=== PATIENT | male | born 1995 | race African-American/Black ===

== ENCOUNTER 2019-12-31 03:51 | Emergency (ER) | payer SELFPAY ==
[2019-12-31 04:17] VITALS: BP 133/70; PULSE 82; RESP 20; TEMP 36.4; O2SAT 95
[2019-12-31] MEDS: cefTRIAXone 250 MG VIAL IM (04:42)
[2019-12-31] MEDS: AZITHROMYCIN 250 MG TABLET 1000 MG PO (04:42)
[2019-12-31 04:53] LABS: Add Urine Microscopic? YES; Appearance Urine Cloudy (Clear); Bacteria Urine Trace /hpf; Bilirubin Urine Negative (Negative); Blood Urine Negative (Negative); Color Urine Yellow (Yellow); Glucose Urine UA Negative (Negative); Ketones Urine Negative (Negative); Leukocyte Esterase Ur 3+ LEU/UL (Negative); Mucus Urine Rare /lpf; Nitrate Urine Negative (Negative); Protein Urine 1+ mg/dL (Negative); Specific Grav Ur 1.024 (1.001-1.035); Urobilinogen Urine Negative mg/dL (<2.0); WBC Urine >75 /hpf
--- NOTE | 2019-12-31 05:01 | ED.MALEGU ---
HPI - Male Genitourinary General Chief complaint: Unspecified Stated complaint: std screening Time Seen by Provider: 12/31/19 04:19 Source: patient Mode of arrival: ambulatory Limitations: no limitations History of Present Illness HPI Narrative: Patient is a 24-year-old male who presents to the emergency department with complaint of STD exposure. Patient states he had unprotected sex with his girlfriend 2 days ago. He states she just informed him that she was diagnosed with an STD. Patient is uncertain which STD his girlfriend was diagnosed with. Patient denies any penile discharge, dysuria, nausea, vomiting, or penile lesions. He reports prior history of chlamydia in the past. Complaint: possible STD exposure Context: known STD exposure Associated symptoms: Reports denies other symptoms Related Data Sexually active: Yes Home Medications Medication Instructions Recorded Confirmed No Home Medications 12/31/19 12/31/19 Allergies Allergy/AdvReac Type Severity Reaction Status Date / Time No Known Allergies Allergy Verified 12/31/19 04:21 Review of Systems Review of Systems: All systems reviewed & are unremarkable except as noted in HPI and below PMFSH Past Medical History Medical History (Updated 12/31/19 @ 05:03 by Rox Benton MD) No significant past medical history Surgical History Surgical History (Updated 12/31/19 @ 05:02 by Rox Benton MD) No significant past surgical history Social History Social History (Updated 12/31/19 @ 05:02 by Rox Benton MD) Tobacco type: cigarettes Substance use type: marijuana Gender identity (if verbalized by the patient): Male Exam Const: General: cooperative, no acute distress and alert Nutritional Appearance: well nourished Orientation/consciousness: patient oriented x3 Limitations: no limitations HENMT: Mouth: Yes lip normal and Yes moist mucous membranes Resp: Effort & Inspection: normal respiratory effort Auscultation: clear to auscultation bilaterally Cardio: Rate: regular rate Rhythm: regular rhythm GI: GI Palp: Yes Soft to palpation and No Tenderness to palpation present (GI) Auscultation: normal bowel sounds Skin: General skin exam: normal color Neuro: General: patient oriented x3 Cognition (Neuro): normal cognition Speech: normal speech Extrem: General: normal to inspection, full ROM and no clubbing, cyanosis or edema Psych: Mental Status: mental status grossly normal Affect: normal affect Attitude: cooperative Course Course Emergency Course: Patient given Rocephin IM and 1 g of Zithromax p.o. for STD exposure. STD testing sent to lab. Advised to follow-up with on-call primary care physician. Vital Signs Vital signs: Vital Signs Temperature 97.6 F 12/31/19 04:17 Pulse Rate 82 12/31/19 04:17 Respiratory Rate 20 12/31/19 04:17 Blood Pressure 133/70 12/31/19 04:17 Pulse Oximetry 95 12/31/19 04:17 Temperature 97.6 F 12/31/19 04:17 Pulse Rate 82 12/31/19 04:17 Respiratory Rate 20 12/31/19 04:17 Blood Pressure 133/70 12/31/19 04:17 Pulse Oximetry 95 12/31/19 04:17 MDM - Male Genitourinary Lab Data Labs: Lab Results 12/31/19 12/31/19 Range/Units 04:42 04:42 Urine Color Pending Urine Appearance Pending Urine pH Pending Ur Specific [place] Pending Urine Protein Pending Urine Glucose (UA) Pending Urine Ketones Pending Ur Blood (Man) Pending Urine Nitrate Pending Urine Bilirubin Pending Urine Urobilinogen Pending Leukocyte Esterase Rfl Pending C.trachomatis RNA (TMA) Pending N.gonorrhoeae RNA (TMA) Pending Critical Care Time Critical Care Time Critical Care Time: No Discharge Plan Discharge Clinical Impression: Exposure to sexually transmitted disease (STD) Patient Disposition: Home, Self-Care Condition: Stable Instructions: Antibiotic Form, Sexually Transmitted Diseases
[2019-12-31 05:36] VITALS: BP 118/80; PULSE 80; RESP 20; O2SAT 99
== END 2019-12-31 05:40 | disposition home or self-care (01) ==
PROVIDERS: Emergency Provider Emergency Medicine
DX: Z20.2 Contact with and (suspected) exposure to infections with a predominantly sexual mode of transmission (principal); F17.210 Nicotine dependence, cigarettes, uncomplicated
CPT/HCPCS: 81001; 87086; 87088; 87491; 87591; 96372; 99283; A9270; J0696